=== PATIENT | female | born 1965 | race Caucasian/White ===

== ENCOUNTER 2017-01-09 07:23 | Outpatient (CLI) | payer OTHER | END 2017-01-09 07:24 | LOC: LAB 07:23 | PROVIDERS: ATTEND Psychiatry & Neurology Child & Adolescent Psychiatry | DX: F29 Unspecified psychosis not due to a substance or known physiological condition (principal) | CPT/HCPCS: 36415; 80061 ==

== ENCOUNTER 2017-09-19 08:35 | Outpatient (CLI) | payer OTHER ==
[2017-09-19 09:08] LABS: BASOPHILS % 1.1 (0.0-1.5); EOSINOPHILS % 4.6 % (0.0-6.8); MEAN CORPUSCULAR HEMOGLOBIN 31.2 pg (28.0-34.0); MEAN CORPUSCULAR VOLUME 90.9 fl (80.0-100.0); MONOCYTES % 3.9 % (0.0-11.0); NEUTROPHILS # 2.4 # k/uL (1.4-7.7)
[2017-09-19 09:31] LABS: eGFR (African) > 60; eGFR (Non-African) > 60
== END 2017-09-19 08:36 ==
LOC: LAB 08:35
PROVIDERS: ATTEND Psychiatry & Neurology Psychiatry
DX: F20.0 Paranoid schizophrenia (principal)
CPT/HCPCS: 36415; 80053; 80061; 85025